=== PATIENT | female | born 1985 | race Caucasian/White ===

== ENCOUNTER 2016-12-21 09:25 | Emergency (ER) | payer OTHER ==
[2016-12-21] MEDS ORDERED: TRAMADOL HCL 50 MG TABLET ONE (10:15)
[2016-12-21] MEDS ORDERED: ONDANSETRON 4 MG ODT TAB ONE (10:15)
--- NOTE | 2016-12-21 10:26 | RAD ---
ANKLE-RIGHT 3 VIEW History: Fall. Comparison: None. Findings: Views of the right ankle were obtained. Images demonstrate evidence of a transverse fracture of the tip of the distal fibula with adjacent soft tissue swelling. There is also an irregular ossific density on the AP projection lateral to the distal portion of the talus which may reflect an additional fracture fragment. The mortise joint is not widened. The talar dome contour is within expected. A large anterior calcaneal views of right is incidentally seen. Impression: 1. A transverse fracture of the tip of the distal fibula with adjacent soft tissue swelling. 2. An irregularly contoured ossific fragment lateral to the distal portion of the talus, possibly an avulsion fracture fragment. 3. A large anterior calcaneal spur.
[2016-12-21] MEDS ORDERED: OXYCODONE/ACETAMINOPHEN 5/325 MG TABLET ONE (11:06)
== END 2016-12-21 12:22 | disposition home or self-care (01) ==
LOC: ED 09:25
DX: S82.424A Nondisplaced transverse fracture of shaft of right fibula, initial encounter for closed fracture (principal); S60.413A Abrasion of left middle finger, initial encounter; W17.89XA Other fall from one level to another, initial encounter; Y92.69 Other specified industrial and construction area as the place of occurrence of the external cause; Y99.0 Civilian activity done for income or pay